=== PATIENT | female | born 1965 | race Caucasian/White ===

== ENCOUNTER 2016-06-15 09:45 | Day surgery (SDC) | payer OTHER ==
[2016-06-11 14:00] LABS: HEMATOCRIT 43.4 % (36.0-48.0); HEMOGLOBIN 15.2 g/dL (12.0-16.0)
[2016-06-11 14:10] LABS: CALCIUM, SERUM 9.1 MG/DL (8.5-10.4); CHLORIDE, SERUM 104 MMOL/L (96-112); CO2 (CARBON DIOXIDE) 23 MMOL/L (24-34); CREATININE 0.83 MG/DL (0.55-1.02); GFR AFRICAN AMERICAN 95 ML/MIN (>=60); GFR NON AFRICAN AMERICAN 82 ML/MIN (>=60); GLUCOSE, SERUM 104 MG/DL (60-99); POTASSIUM, SERUM 4.1 MMOL/L (3.5-5.3); SODIUM, SERUM 137 MMOL/L (135-148)
[2016-06-11 14:11] LABS: BUN (BLOOD UREA NITROGEN) 11 MG/DL (6-23)
--- NOTE | ~2016-06-15 | OP ---
Record Of Operation [facility] [address] [place]. [address] NAME: BARTOLO BLANCO : 65 STATUS : [facility]#: [id number] AGE: 50 ADM/REG DATE : 06/15/16 MR#: [id number] REPORT SERV DATE: 06/15/16 DICTATED BY: BARTOLO EWING DATE: 06/15/16 REPORT STATUS : Draft TRANSCRIBED BY: MODL DATE: 06/15/16 DATE OF PROCEDURE: PREOPERATIVE DIAGNOSES: Chronic dentoalveolar abscesses, multiple fractured teeth, right maxillary sinusitis. POSTOPERATIVE DIAGNOSES: Chronic dentoalveolar abscesses, multiple fractured teeth, right maxillary sinusitis. OPERATION: Multiple extraction alveoloplasty, right Hastings-Mauricio. DESCRIPTION: After induction of general endotracheal anesthesia, face and mouth were prepped and draped in usual manner. Maxillary mandibular blocks were administered utilizing 0.5% Marcaine with 1:200,000 epinephrine solution. Mucoperiosteal flap was reflected medial and laterally from the alveolar process of the mandible and the remaining teeth removed by elevator and forceps technique. A conservative alveoloplasty was performed. The rongeur and a rotary osteotome and the wounds were irrigated with normal saline and the mucoperiosteum reapproximated with 3-0 continuous plain gut suture. Attention was now turned to the maxilla where a mucoperiosteal flap was reflected from the anterior and lateral aspect of the maxilla. The remaining teeth removed by elevator and forceps technique. There was noted to be communication from periapical disease on the right maxillary molar into the right maxillary sinus. The mucoperiosteal flap was reflected and a Hastings-Mauricio incision made with a copious amount of polypoid material being removed. The sinus was copiously irrigated with normal saline. No purulent exudate was noted. An alveoloplasty was performed with a rongeur and a rotary osteotome and the mucoperiosteum reapproximated with 3-0 continuous plain gut suture. Throat pack was removed. The pharynx was suctioned clear, and the patient allowed to awaken on the inflated endotracheal tube having tolerated the procedure well. BLOOD LOSS: Estimated at 50 mL to 100 mL. IV FLUIDS: 800 mL lactated Ringer's. The patient received 2 g of Ancef intraoperatively. WT/MODL Bartolo Ewing D.D.S. / [id number] CC: Bernice Mello, [employer] MACHINE OPERATOR
[~2016-06-15 09:45] MED LIST: CELEXA20 PO; LEVOTHYROXIN50 MCG PO; NEXIUM40 PO; NORCO1 TAB PO; NORV5 PO; TRAZ50 PO; ZOFRAN4 PO
== END 2016-06-15 18:06 | disposition home or self-care (01) ==
LOC: SDC 09:45
PROVIDERS: Oral & Maxillofacial Surgery
PROC: 0CDWXZ1 Extraction of Upper Tooth, Multiple, External Approach (ICD-10-PCS; 2016-06-15)
PROC: 0NBV0ZZ Excision of Left Mandible, Open Approach (ICD-10-PCS; 2016-06-15)
PROC: 0NBR0ZZ Excision of Maxilla, Open Approach (ICD-10-PCS; 2016-06-15)
PROC: 0NBS0ZZ (ICD-10-PCS; 2016-06-15)
PROC: 0NBT0ZZ Excision of Right Mandible, Open Approach (ICD-10-PCS; 2016-06-15)
PROC: 09BQ0ZZ Excision of Right Maxillary Sinus, Open Approach (ICD-10-PCS; principal; 2016-06-15 11:15)
PROC: 0CDXXZ1 Extraction of Lower Tooth, Multiple, External Approach (ICD-10-PCS; 2016-06-15 11:15)
DX: J33.8 Other polyp of sinus (principal); K04.01 Reversible pulpitis; J01.00 Acute maxillary sinusitis, unspecified; K04.6 Periapical abscess with sinus; E66.9 Obesity, unspecified; I10 Essential (primary) hypertension; E03.9 Hypothyroidism, unspecified; F32.9 Major depressive disorder, single episode, unspecified; F41.9 Anxiety disorder, unspecified; G89.29 Other chronic pain; M54.2 Cervicalgia; K21.9 Gastro-esophageal reflux disease without esophagitis; Z90.710 Acquired absence of both cervix and uterus; Z88.5 Allergy status to narcotic agent; F17.210 Nicotine dependence, cigarettes, uncomplicated
CPT/HCPCS: 80048; 85014; 85018; 88300; 88304; 93005; A9270-GY; J0690; J1170; J2250; J2370; J2405; J2710; J3010